=== PATIENT | female | born 1995 | race Two or more races ===

== ENCOUNTER 2018-03-08 01:49 | Inpatient (IN) | payer OTHER ==
[2018-03-08 02:12] LABS: APPEARANCE,URINE CLOUDY; BILIRUBIN,URINE NEGATIVE (NEGATIVE); COLOR,URINE YELLOW; GLUCOSE, URINE NEGATIVE (NEGATIVE); KETONES,URINE NEGATIVE (NEGATIVE); LEUKOCYTE ESTERASE,URINE MODERATE (NEGATIVE); NITRITE,URINE NEGATIVE (NEGATIVE); PROTEIN,URINE NEGATIVE (NEGATIVE); URINE SPECIFIC GRAVITY 1.009; UROBILINOGEN,URINE NEGATIVE mg/dL (<2.0)
[2018-03-08 02:28] LABS: URINE AMPHETAMINES SCREEN NEGATIVE; URINE BARBITURATES SCREEN NEGATIVE; URINE BENZODIAZEPINES SCREEN NEGATIVE; URINE COCAINE SCREEN NEGATIVE; URINE MARIJUANA (THC) SCREEN NEGATIVE; URINE METHADONE SCREEN NEGATIVE; URINE PHENCYCLIDINE SCREEN NEGATIVE
[2018-03-08] MEDS ORDERED: RINGERS SOLUTION,LACTATED 1,000 ML IV PRN (03:50)
[2018-03-08] MEDS ORDERED: RINGERS SOLUTION,LACTATED 1,000 ML IV ONE (03:50)
[2018-03-08] MEDS ORDERED: EPHEDRINE SULFATE INJ 50 MG/1 ML AMPULE ONE (03:59)
[2018-03-08] MEDS ORDERED: FENTANYL/BUPIVACAINE/NS/PF 300 MCG/150 ML RTUINJ EPI ONE (03:59)
[2018-03-08] MEDS ORDERED: MISOPROSTOL 0.2 MG TABLET ONE (03:59)
[2018-03-08] MEDS ORDERED: BUPIVACAINE HCL 0.25 % INJ/PF (2.5 MG/1 ML) 30 ML VIAL ONE (04:00)
[2018-03-08] MEDS ORDERED: LIDOCAINE 1% INJ-PF (10 MG/ML) 30 ML SDV ONE (04:00)
[2018-03-08] MEDS ORDERED: OXYTOCIN/NORMAL SALINE 20 UNIT/1,000 ML RTUINJ ONE (04:00)
[2018-03-08 04:09] LABS: ABSOLUTE BASOPHILS # (AUTO) 0.1 10^3/uL (0.0-0.2); ABSOLUTE LYMPHOCYTES (AUTO) 1.8 10^3/uL (0.5-4.7); ABSOLUTE MONOCYTES (AUTO) 0.7 10^3/uL (0.1-1.4); ABSOLUTE NEUT (AUTO) 6.8 10^3/uL (1.7-8.2); BASOPHILS % (AUTO) 0.8 % (0-2); EOSINOPHILS % (AUTO) 0.3 % (0-6); HEMATOCRIT 35.8 % (36.0-47.0); HEMOGLOBIN 11.9 g/dL (12.0-15.5); MEAN CORPUSCULAR HEMOGLOBIN 27.4 pg (27.0-33.4); MEAN CORPUSCULAR HGB CONC 33.2 g/dL (32.0-36.0); MEAN CORPUSCULAR VOLUME 83 fl (80-97); MONOCYTES % (AUTO) 7.5 % (3-13); PLATELET COUNT 208 10^3/uL (150-450); RED BLOOD COUNT 4.33 10^6/uL (3.72-5.28); RED CELL DISTRIBUTION WIDTH 14.2 % (11.5-14.0); SEGMENTED NEUTROPHILS % (AUTO) 72.4 % (42-78); TOTAL CELLS COUNTED % (AUTO) 100 %; WHITE BLOOD COUNT 9.5 10^3/uL (4.0-10.5)
--- NOTE | 2018-03-08 05:29 | Admission Physical ---
Datetime Report Generated by CPN: 03/08/2018 05:29 CURRENT ADMISSION Chief Complaint: Uterine Contractions Admit Impression : Term, Intrauterine Admit Plan: Initiate Labor Protocol ALLERGIES Medication Allergies: No Medication Allergies: No Known Allergies (03/08/2018) Latex: No Latex Allergies Food Allergies: N/A Environmental Allergies: N/A OBSTETRICAL HISTORY EDC: 03/05/2018 00:00 : 3 Para: 2 Term: 2 : 0 SAB: 0 IAB: 0 Ectopic: 0 Livin Cesareans: 0 VBACs: 0 Multiple Births: 0 Gestational Diabetes: No Rh Sensitization: No Incompetent Cervix: No LAUREN: No Infertility: No ART Treatment: No Uterine Anomaly: No IUGR: No Hx Previous C/S: No Macrosomia: No Hx Loss/Stillborn: No PIH: No Hx : No Placenta Previa/Abruption: No Depression/PP Depression: No PTL/PROM: No Post Hemorrhage: No Current Procedures: Ultrasound Obstetrical History Comments: @ 38wks male 6lbs 2oz @ 41wks male 6lbs 10oz G3-Current SEE RECORDS Alcohol: No Marijuana : No Cocaine: No Other Illicit Drugs: No Cigarettes: Never Smoker. [id number] MEDICAL HISTORY Diabetes: No Blood Transfusion: No Pulmonary Disease (Asthma, TB): No Breast Disease: No Hypertension: No Trimmer Sawyer Surgery: No Heart Disease: No Hosp/Surgery: Yes Autoimmune Disorder: No Anesthetic Complications: No Kidney Disease: Yes Abnormal Pap Smear: No Neuro/Epilepsy: No Psychiatric Disorders: No Other Medical Diseases: Yes Hepatitis/Liver Disease: No Significant Family History: No Varicosities/Phlebitis: No Trauma/Violence : No Thyroid Dysfunction: No Medical History Comments: Hx malignant chest mass removed 2008-f/u testing neg; Childbirth x 2; Kidney infx (2017) INFECTIOUS HISTORY Gonorrhea: No Genital Herpes: No Chlamydia: No Tuberculosis: No Syphilis: No Hepatitis: No HIV/AIDS Exposure: No Rash or Viral Illness: No HPV: No PHYSICAL EXAM General: Normal HEENT: Normal Neurologic: Normal Thyroid: Normal Heart: Normal Lungs: Normal Breast: Deferred Back: Normal Abdomen: Normal Genitourinary Exam: Normal Extremities: Normal DTRs: Normal Pelvic Type: Adequate FETUS A EGA: 40.3 PLANS FOR LABOR AND DELIVERY Pain Management: Natural; Epidural Feeding Preference: Breast Circumcision: N/A INFORMED CONSENT Signature: with User ID: [email or web address]
[2018-03-08] MEDS ORDERED: PROMETHAZINE HCL 25 MG SUPP.RECT PR PRN (05:35)
[2018-03-08] MEDS ORDERED: PROMETHAZINE HCL 25 MG TABLET PO PRN (05:35)
[2018-03-08] MEDS ORDERED: PROMETHAZINE HCL INJ 25 MG/1 ML VIAL IV PRN (05:35)
[2018-03-08] MEDS ORDERED: NA PHOS,M-B/NA PHOS,DI-BA (ADULT) 133 ML ENEMA PR PRN (05:35)
[2018-03-08] MEDS ORDERED: ACETAMINOPHEN WITH CODEINE #3 TABLET PO PRN (05:35)
[2018-03-08] MEDS ORDERED: PSEUDOEPHEDRINE HCL 30 MG TABLET PO PRN (05:35)
[2018-03-08] MEDS ORDERED: MEASLES,MUMPS&RUBELLA VACC/PF 0.5 ML VIAL SUBCUT PRN (05:35)
[2018-03-08] MEDS ORDERED: ZOLPIDEM TARTRATE 5 MG TABLET PO PRN (05:35)
[2018-03-08] MEDS ORDERED: DIPH/PERTUSS(ACELL)/TETANUS VAC/PF 0.5 ML SYR (>=10YO) IM PRN (05:35)
[2018-03-08] MEDS ORDERED: ACETAMINOPHEN 650 MG SUPP.RECT PR PRN (05:35)
[2018-03-08] MEDS ORDERED: MAGNESIUM HYDROXIDE SUSP 30 ML UDCUP PO PRN (05:35)
[2018-03-08] MEDS ORDERED: BENZOCAINE/MENTHOL AEROSOL SPRAY 56 ML TOP PRN (05:35)
[2018-03-08] MEDS ORDERED: GLYCERIN/WITCH HAZEL LEAF 1 EACH MED..PAD TP PRN (05:35)
[2018-03-08] MEDS ORDERED: DIBUCAINE 1% OINTMENT 28 GM TP PRN (05:35)
[2018-03-08] MEDS ORDERED: DIPHENHYDRAMINE HCL 25 MG CAPSULE PO PRN (05:35)
[2018-03-08] MEDS ORDERED: OXYTOCIN/NORMAL SALINE 20 UNIT/1,000 ML RTUINJ IV PRN (05:35)
--- NOTE | 2018-03-08 05:35 | PDOC DELIVERY SUMMARY ---
Delivery Summary - Maternal Ruptured Membranes: AROM Fluids: Clear - Delivery Presentation: Vertex Heart Rate Monitoring: Externally Uterine Contraction Monitoring: External Support Person Present: Yes
--- NOTE | 2018-03-08 06:25 | Delivery Summary ---
Del Sum A-C Datetime Report Generated by CPN: 03/08/2018 06:25 DELIVERY PERSONNEL DELIVERY PERSONNEL: [id number] Delivery Doctor:: Yosef Hollins MD Labor and Delivery Nurse:: Tisha Meade RNlead medical technologist Nurse:: Ora Guerrero RN Employee Relations Manager/COAL TRAMMER: Justyna Frost, STITCH BONDER MACHINE OPERATOR HELPER Employee Relations Manager/COAL TRAMMER: Geetha Silva CNA MATERNAL INFORMATION Delivery Anesthesia: Epidural Medications After Delivery: Pitocin Bolus-Please Comment; Pitocin Drip 20 Units/1000ml NSS Maternal Complications: None LABOR SUMMARY EDC: 03/05/2018 00:00 No. Babies in Womb: 1 Attempted: No Labor Anesthesia: Epidural LABOR INFORMATION Reason for Induction: Not Applicable Onset of Labor: 03/08/2018 03:36 Complete Dilatation: 03/08/2018 04:55 Oxytocin: N/A Group B Beta Strep: Negative Antibiotics # of Doses: 0 Steroids Given: None Reason Steroids Not Administered: Not Applicable MEMBRANES Membranes Rupture Method: Artificial Rupture of Membranes: 03/08/2018 05:19 Length of Rupture (hr): 0.03 Amniotic Fluid Color: Clear Amniotic Fluid Amount: Small Amniotic Fluid Odor: Normal STAGES OF LABOR Stage 1 hr: 1 Stage 1 min: 19 Stage 2 hr: 0 Stage 2 min: 26 Stage 3 hr: 0 Stage 3 min: 4 Total Time in Labor hr: 1 Total Time in Labor min: 49 VAGINAL DELIVERY Episiotomy: None Laceration #1: None Laceration Extension #1: N/A Laceration Repair: Not Applicable Sponge Count Correct: N/A Sharps Count Correct: N/A CSECTION DELIVERY Primary Indication: N/A Secondary Indication: N/A CSection Incidence: N/A Labor: N/A Elective: N/A CSection Incision: N/A BABY A INFORMATION Delivery Date/Time: 03/08/2018 05:21 Method of Delivery: Vaginal Born in Route : No : N/A Forceps: N/A Vacuum Extraction: N/A Shoulder Dystocia : No PRESENTATION/POSITION BABY A Presentation: Cephalic Cephalic Presentation: Vertex Vertex Position: Right Occipital Anterior Breech Presentation: N/A PLACENTA INFORMATION BABY A Placenta Delivery Time : 03/08/2018 05:25 Placenta Method of Delivery: Spontaneous Placenta Status: Delivered SCORES BABY A Heart Rate 1 min: >100 bpm Resp Effort 1 min: Good Cry Reflex Irritability 1 min: Cough or Sneeze or Pulls Away Muscle Tone 1 min: Active Motion Color 1 min: Body [place], Extremities Blue Resuscitation Effort 1 min: Tactile Stimulation SCORE 1 MIN: 9 Heart Rate 5 min: >100 bpm Resp Effort 5 min: Good Cry Reflex Irritability 5 min: Cough or Sneeze or Pulls Away Muscle Tone 5 min: Active Motion Color 5 min: Completely [place] Resuscitation Effort 5 min: Tactile Stimulation SCORE 5 MIN: 10 INFANT INFORMATION BABY A Gestational Age at Delivery: 40.3 Gestational Status: Full Term- 39- 40.6 Weeks Infant Outcome : Liveborn Condition : Stable Infant Sex: Female IDENTIFICATION BABY A Infant Verification Date/Time: 03/08/2018 05:30 ID Band Number: [id number] Mother's Name Verified: Yes Infant RN Verifying : Fran Mejia, RN. Fiona Dangelo, RN WEIGHT/LENGTH BABY A Birthweight (gm): 3000 Weight (lb): 6 Infant Weight (oz): 10 Length (in): 18.50 Infant Length (cm): 46.99 CORD INFORMATION BABY A No. Cord Vessels: 3 Nuchal Cord : N/A Nuchal Cord- Other: right compound hand Cord Blood Taken: Yes-For Eval (Mom's Blood Type - or O+) Suction: None ASSESSMENT BABY A Complications: None Physical Findings at Delivery: Within Normal Limits Respirations: Appears Normal Skin to Skin: Yes Organisation And Methods Analyst/ALS Called : No Infant Care By: Marty Guerrero, RNC Transferred To: Remains with Mother BABY B INFORMATION : N/A SIGNATURES Signature: with User ID: [email or web address]
[2018-03-08] MEDS: FERROUS SULFATE 325 MG TABLET PO SCH ×2 (10:21→17:35)
[2018-03-08] MEDS: FAMOTIDINE 20 MG TABLET PO SCH ×2 (10:21→21:54)
[2018-03-08] MEDS: DOCUSATE SODIUM 100 MG CAPSULE PO SCH ×2 (10:21→17:35)
[2018-03-08] MEDS: IBUPROFEN 800 MG TABLET PO SCH ×3 (10:22→21:54)
[2018-03-08] MEDS: PRENATAL VITAMIN W DHA CAPSULE PO SCH (10:22)
[2018-03-08] MEDS: SENNOSIDES/DOCUSATE 8.6-50 MG 1 EACH TABLET PO SCH (10:22)
[2018-03-09] MEDS: IBUPROFEN 800 MG TABLET PO SCH ×3 (06:53→22:34)
[2018-03-09 07:19] LABS: HEMATOCRIT 34.4 % (36.0-47.0); HEMOGLOBIN 11.4 g/dL (12.0-15.5); MEAN CORPUSCULAR HEMOGLOBIN 27.8 pg (27.0-33.4); MEAN CORPUSCULAR HGB CONC 33.3 g/dL (32.0-36.0); MEAN CORPUSCULAR VOLUME 83 fl (80-97); PLATELET COUNT 185 10^3/uL (150-450); RED BLOOD COUNT 4.12 10^6/uL (3.72-5.28); RED CELL DISTRIBUTION WIDTH 14.5 % (11.5-14.0); WHITE BLOOD COUNT 8.7 10^3/uL (4.0-10.5)
--- NOTE | 2018-03-09 09:39 | PDOC PROGRESS REPORT ---
Subjective-OB Progress Note for:: 03/09/18 Physical Exam (OB) Vital Signs: Temp Pulse Resp BP Pulse Ox 97.9 F 68 16 123/77 98 03/08/18 19:45 03/08/18 19:45 03/08/18 19:45 03/08/18 19:45 03/08/18 19:45 Intake & Output 03/08/18 03/09/18 03/10/18 06:59 06:59 06:59 Weight 63.6 kg - PIH/Pre-Eclampsia Clonus: Negative Headache: Absent Epigastric Pain: No Visual Changes: No - Lochia Lochia Amount: Small 10-25 ml Lochia Color: Rubra/Red - Abdomen Description: Round Hernia Present: No Bowel Sounds: Normoactive Flatus Presence: Present Stool: No Fundal Description: Firm Fundal Height: u/u - u/2 Objective-Diagnostic Laboratory: 03/09/18 06:58 03/09/18 06:58 WBC 8.7 RBC 4.12 Hgb 11.4 L Hct 34.4 L MCV 83 MCH 27.8 MCHC 33.3 RDW 14.5 H Plt Count 185
[2018-03-09] MEDS: PRENATAL VITAMIN W DHA CAPSULE PO SCH (10:43)
[2018-03-09] MEDS: SENNOSIDES/DOCUSATE 8.6-50 MG 1 EACH TABLET PO SCH (10:43)
[2018-03-09] MEDS: FERROUS SULFATE 325 MG TABLET PO SCH ×2 (10:43→18:30)
[2018-03-09] MEDS: DOCUSATE SODIUM 100 MG CAPSULE PO SCH ×2 (10:43→18:30)
[2018-03-09] MEDS: FAMOTIDINE 20 MG TABLET PO SCH ×2 (10:43→22:34)
[2018-03-10] MEDS: IBUPROFEN 800 MG TABLET PO SCH (06:02)
[2018-03-10 07:28] VITALS: BP 117/79
[2018-03-10] MEDS: PRENATAL VITAMIN W DHA CAPSULE PO SCH (09:01)
[2018-03-10] MEDS: SENNOSIDES/DOCUSATE 8.6-50 MG 1 EACH TABLET PO SCH (09:02)
[2018-03-10] MEDS: FAMOTIDINE 20 MG TABLET PO SCH (09:02)
[2018-03-10] MEDS: FERROUS SULFATE 325 MG TABLET PO SCH (09:02)
[2018-03-10] MEDS: DOCUSATE SODIUM 100 MG CAPSULE PO SCH (09:02)
--- NOTE | 2018-03-10 09:15 | PDOC PROGRESS REPORT ---
Subjective-OB Progress Note for:: 03/10/18 Subjective: Ready to go home. Physical Exam (OB) Vital Signs: Temp Pulse Resp BP Pulse Ox 98.2 F 68 18 117/79 97 03/10/18 07:28 03/10/18 07:28 03/10/18 07:28 03/10/18 07:28 03/10/18 07:28 - PIH/Pre-Eclampsia Clonus: Negative Headache: Absent Epigastric Pain: No Visual Changes: No - Lochia Lochia Amount: Scant < 10 ml Lochia Color: Rubra/Red - Abdomen Description: Soft, Round Hernia Present: No Bowel Sounds: Normoactive Flatus Presence: Present Stool: Yes Fundal Description: Firm, Midline Fundal Height: u/u - u/2 Objective-Diagnostic Laboratory: 03/09/18 06:58
--- NOTE | 2018-03-10 09:21 | PDOC DISCHARGE SUMMARY ---
Final Diagnosis Discharge Date: 03/10/18 - Final Diagnosis (1) Delivery normal Is this a current diagnosis for this admission?: Yes (2) Is this a current diagnosis for this admission?: Yes Discharge Data - Discharge Medication Home Medications: No Home Medications 03/08/18 Gestational Age: 40.3 wks Reason(s) for Admission: Onset of Labor Procedures: Ultrasound Intrapartum Procedure(s): Spontaneous Vaginal Delivery - Data Baby 1 Female at 1 minute: 9 at 5 minutes: 10 Weight: 3.005 kg Home with Mother: Yes Complications: No - Diagnosis Test Laboratory: Temp Pulse Resp BP Pulse Ox 98.2 F 68 18 117/79 97 03/10/18 07:28 03/10/18 07:28 03/10/18 07:28 03/10/18 07:28 03/10/18 07:28 03/08/18 03/08/18 03/09/18 02:00 04:00 06:58 RBC 4.33 4.12 Hgb 11.9 L 11.4 L Hct 35.8 L 34.4 L Urine Opiates Screen NEGATIVE - Discharge information/Instructions Discharge Activity: Activity As Tolerated, Balance Activity w/Rest, Non- Ambulatory Child, Pelvic Rest, Slowly Increase Activity, No tub bath Discharge Diet: Regular Disposition: HOME, SELF-CARE Follow up with: [facility] in: 4, Weeks
== END 2018-03-10 10:59 | disposition home or self-care (01) | DRG 775 ==
LOC: LC 01:49 → LR 03:48 → 2S 09:17
PROVIDERS: ADMIT Obstetrics & Gynecology Gynecology; ATTEND Obstetrics & Gynecology Gynecology
PROC: 10E0XZZ Delivery of Products of Conception, External Approach (ICD-10-PCS; principal; 2018-03-08)
DX: O48.0 Post-term pregnancy (principal); O32.6XX0 Maternal care for compound presentation, not applicable or unspecified; Z3A.40 40 weeks gestation of pregnancy; Z37.0 Single live birth
CPT/HCPCS: 36415; 80307; 81005; 85025; 85027; 86592; 86850; 86900; 86901; 94760; J2590; J3010; J3490